=== PATIENT | male | born 1995 | race African-American/Black ===

== ENCOUNTER 2018-09-06 20:34 | Emergency (ER) | payer OTHER ==
[2018-09-06 20:44] VITALS: BP 145/95
--- NOTE | 2018-09-06 21:39 | XRAY Report ---
Reason: possL ankle injury from running errands. C/o pain Procedure Date: 09/06/2018 Accession Number: [id number] / [id number] Procedure: XR - Ankle 3 View LT CPT Code: FULL RESULT: EXAM: LEFT ANKLE RADIOGRAPHY EXAM DATE: 09/06/2018 09:23 PM. CLINICAL HISTORY: Ankle injury from running errands. Pain. COMPARISON: None. TECHNIQUE: 3 views. FINDINGS: Bones: No acute fracture. Joints: No dislocation or subluxation. No radiographic evidence of joint effusion. Soft Tissues: Unremarkable. IMPRESSION: No acute osseous or articular abnormality. RADIA
--- NOTE | 2018-09-06 22:28 | ED Physician Documentation ---
PD HPI LOWER EXT INJURY - Stated complaint Stated Complaint: LT ANKLE PX - Chief complaint Chief Complaint: Trauma Ext - History obtained from History obtained from: Patient - History of Present Illness PD HPI LOW EXT INJURY LOCATION: Left, Ankle Type of injury: Twist (He twisted his ankle yesterday. It really was not painful at first but through a lot of walking today got worse and worse and now is having trouble walking at all declines pain medication.) Review of Systems Constitutional: reports: Reviewed and negative Nose: reports: Reviewed and negative Cardiac: reports: Reviewed and negative PD PAST MEDICAL HISTORY - Present Medications Home Medications: Ambulatory Orders Medication Instructions Recorded Confirmed No Known Home Medications 09/06/18 09/06/18 - Allergies Allergies/Adverse Reactions: Allergies Allergy/AdvReac Type Severity Reaction Status Date / Time No Known Drug Allergies Allergy Verified 09/06/18 20:44 PD ED PE NORMAL - Vitals Vital signs reviewed: Yes - General General: Alert and oriented X 3, No acute distress - Extremities Extremities: Other (Left ankle is mildly tender over the ATFL but no bony tenderness over either malleoli or proximal fibula. There is no jelly filter tender ness.) - Neuro Neuro: Alert and oriented X 3, Normal speech Results - Vitals Vitals: Vital Signs - 24 hr 09/06/18 20:41 Temperature 36.5 C Heart Rate 86 Respiratory 16 Rate Blood Pressure 145/95 H O2 Saturation 99 Oxygen O2 Source Room air - Rads (name of study) L ankle 3v Radiology: EMP read contemporaneously (NAD) Departure - Departure Disposition: 01 Home, Self Care Clinical Impression: Ankle injury Qualifiers: Encounter type: initial encounter Laterality: left Qualified Code(s): S99.912A - Unspecified injury of left ankle, initial encounter Condition: Good Record reviewed to determine appropriate education?: Yes Instructions: ED Sprain Ankle W X Ray Comments: Ibuprofen as needed for pain, recheck with your physician in 1 week if not better Your blood pressure was elevated today on check into the emergency department. This does not mean that you have hypertension, it is a common phenomenon to come to the emergency department and have elevated blood pressure. I recommend that you see your primary care physician within the week to have it rechecked when you are feeling better. Forms: Activity restrictions
== END 2018-09-06 22:41 | disposition home or self-care (01) ==
LOC: EDBD 20:34 → ED 20:34
DX: S99.912A Unspecified injury of left ankle, initial encounter (principal); X50.1XXA Overexertion from prolonged static or awkward postures, initial encounter; Y93.89 Activity, other specified; Y99.0 Civilian activity done for income or pay; R03.0 Elevated blood-pressure reading, without diagnosis of hypertension
CPT/HCPCS: 99282; 99283